=== PATIENT | female | born 1990 ===

== ENCOUNTER 2016-03-14 22:18 | Emergency (ER) | payer SELFPAY ==
[2016-03-15 00:01] LABS: Basophils % (Auto) 0.5 % (0.0-1.8); Eosinophils % (Auto) 1.3 % (0.0-4.3); Hematocrit 39.8 % (30.3-42.9); Hemoglobin 13.1 gm/dl (10.1-14.3); Mean Corpuscular HGB Conc 33 % (30-34); Mean Corpuscular Hemoglobin 27 pg (28-32); Mean Corpuscular Volume 81 fl (79-97); Platelet Count 431 K/mm3 (140-440); Red Blood Count 4.89 M/mm3 (3.65-5.03); Red Cell Distribution Width 15.2 % (13.2-15.2); White Blood Count 9.8 K/mm3 (4.5-11.0)
[2016-03-15 00:20] LABS: Alanine Aminotransferase 28 units/L (7-56); Albumin 4.2 g/dL (3.9-5); Alkaline Phosphatase 81 units/L (35-129); Anion Gap 17 mmol/L; BUN/Creatinine Ratio 16.25; Bilirubin,Total 0.2 mg/dL (0.1-1.2); Blood Urea Nitrogen 13 mg/dL (7-17); Carbon Dioxide 26 mmol/L (22-30); Chloride 99.3 mmol/L (98-107); Glucose 96 mg/dL (65-100); Potassium 3.7 mmol/L (3.6-5.0); Sodium 139 mmol/L (137-145); Total Protein 8.5 g/dL (6.3-8.2)
[2016-03-15 02:38] LABS: Bilirubin,Urine NEG (Negative); Blood,Urine NEG (Negative); Ketones,Urine NEG (Negative); Leukocyte Esterase,Urine NEG (Negative); Mucus,Urine 1+ /HPF; Nitrite,Urine NEG (Negative); Protein,Urine <15 mg/dL mg/dL (Negative); Urobilinogen,Urine < 2.0 mg/dL (<2.0)
[2016-03-15 08:24] VITALS: BP 131/90
[2016-03-15] MEDS ORDERED: NORCO 7.5/325 PO ONE (08:33)
[2016-03-15] MEDS ORDERED: ZOFRAN ODT PO ONE (08:33)
--- NOTE | 2016-03-15 08:39 | Emergency Department Report ---
HPI - General Chief Complaint: Abdominal Pain Time Seen by Provider: 03/15/16 08:12 - HPI HPI: The patient is a 26-year-old female who presents for evaluation of abdominal pain. The patient reports 3 days of suprapubic abdominal pain, worsening yesterday, constant since y/d, 12/18 in severity, cramping in quality. She shares that her symptoms are consistent with previous episodes of lower abdominal pain secondary to her uterine fibroids and ovarian cysts. She shares that she has experienced some clear vaginal discharge which is long-standing and normal for her. She states that her [employer] perform pelvic cultures on the discharge within the past 2 months, and that she has not engaged in any unprotected sexual intercourse with new partners since. The patient denies fever , chills, night sweats, diarrhea, blood in the stool, dark tarry stool, dysuria , hematuria, flank pain. ED Past Medical Hx - Past Medical History Previous Medical History?: Yes Additional medical history: OVARIAN CYST - Social History Smoking Status: Never Smoker Substance Use Type: None - Medications Home Medications: Home Medications Medication Instructions Recorded Confirmed Last Taken Type traMADol [Ultram 50 MG tab] 50 mg PO Q6HR PRN #20 tablet 03/15/16 Unknown Rx ED Review of Systems ROS: Stated complaint: ABD PAIN/DIARRHEA Other details as noted in HPI Constitutional: denies: fever ENT: denies: throat or neck pain Respiratory: denies: cough, shortness of breath Cardiovascular: denies: chest pain Endocrine: denies unexplained weight loss or gain Gastrointestinal: denies: abdominal pain, nausea Genitourinary: denies: dysuria Musculoskeletal: denies: leg swelling Skin: denies: rash Neurological: denies: headache Hematological/Lymphatic: denies: easy bleeding or easy bruising Psych: denies sadness or hopelessness Physical Exam - Physical Exam Vital Signs: Vital Signs 03/14/16 03/15/16 23:14 08:20 Temperature 99.1 F 98.6 F Pulse Rate 92 H 92 H Respiratory 18 18 Rate Blood Pressure 158/92 Blood Pressure 131/90 [Left] O2 Sat by Pulse 100 100 Oximetry Physical Exam: General: well-nourished, well-developed, no acute distress Head: Normocephalic, atraumatic Eyes: normal sclera ENT: Mucous membranes are pink and moist Neck: trachea midline, neck supple, No neck stiffness, no cervical adenopathy Respiratory: Breath sounds equal bilaterally, no wheezing, rales, or rhonchi Cardio: S1 and S2 present, no murmurs, rubs, gallops, capillary refill is brisk Abdomen: Normoactive bowel sounds, soft abdomen, suprapubic and periumbilical tenderness to palpation present, no pain in McBurney's point, no rigidity, no guarding or rebound tenderness Musc: No pitting edema Skin: No rash Neuro: no facial drooping, normal speech Psych: Normal affect ED Course Vital Signs 03/14/16 03/15/16 23:14 08:20 Temperature 99.1 F 98.6 F Pulse Rate 92 H 92 H Respiratory 18 18 Rate Blood Pressure 158/92 Blood Pressure 131/90 [Left] O2 Sat by Pulse 100 100 Oximetry ED Medical Decision Making - Lab Data Result diagrams: 03/14/16 23:38 03/14/16 23:38 - Medical Decision Making The patient was seen and examined by myself. The patient is placed on a surveillance monitor and continuous pulse ox. On initial evaluation, the patient was found to be in no distress. Evaluation orders are placed. The patient is given a tablet of [place] for her pain. Lab results were non-concerning including WBC, hemoglobin, hematocrit, electrolytes, renal function, LFTs, lipase, urinalysis, and negative preg test. The patient was reevaluated and reported that their symptoms were markedly improved. The patient is stable for discharge with outpatient follow-up. The patient is given follow-up and return instructions. The patient expressed understanding and agreed with the plan. The patient is discharged in stable condition. Critical care attestation.: If time is entered above; I have spent that time in minutes in the direct care of this critically ill patient, excluding procedure time. ED Disposition Clinical Impression: Abdominal pain, acute, periumbilical Disposition: DISCHARGED TO HOME OR SELFCARE Is pt being admited?: No Does the pt Need Aspirin: No Condition: Stable Instructions: Abdominal Pain (ED), Uterine Fibroids (ED), Menorrhagia (ED) Prescriptions: traMADol [Ultram 50 MG tab] 50 mg PO Q6HR PRN #20 tablet PRN Reason: Pain Referrals: PRIMARY CARE,MD [Primary Care Provider] - 3-5 Days Time of Disposition: 08:34
== END 2016-03-15 09:05 | disposition home or self-care (01) ==
LOC: ED 22:18
DX: R10.33 Periumbilical pain (principal)
CPT/HCPCS: 36415; 80053; 81001; 81025; 85025; Q0162